=== PATIENT | male | born 1945 | race Caucasian/White ===

== ENCOUNTER 2016-08-11 17:07 | Outpatient (CLI) | payer MEDICARE ==
[2016-08-11 18:09] LABS: ALT (SGPT) 50 U/L (0-55); AST (SGOT) 31 U/L (5-34); Alkaline Phosphatase 51 U/L (40-150); Anion Gap 16 mmol/L (10-20); BUN (Urea Nitrogen) 21 mg/dL (8.4-25.7); Bilirubin, Total 0.6 mg/dL (0.2-1.2); Calc. Creatinine Clearance 0 mL/min (70-130); Carbon Dioxide 22 mmol/L (23-31); Chloride 106 mmol/L (98-107); Estimated GFR-MDRD Greater than 90; Globulin 2.9 g/dL (2.4-3.5); LDL Cholesterol, Calculated 105 mg/dL; Protein, Total 7.2 g/dL (5.8-8.1)
[2016-08-12 19:15] LABS: Microalbumin Urine Less than 1.0 mg/dL (0.5-50.0)
== END 2016-08-11 17:08 | disposition home or self-care (01) ==
LOC: NAV SJFMSP 17:07
PROVIDERS: ATTEND Family Medicine
DX: Z12.5 Encounter for screening for malignant neoplasm of prostate (principal); E11.9 Type 2 diabetes mellitus without complications
CPT/HCPCS: 80053; 80061; 82043; 84439; 84443; G0103

== ENCOUNTER 2016-08-12 11:38 | Outpatient (CLI) | payer MEDICARE | END 2016-08-12 11:39 | disposition home or self-care (01) | LOC: NAV LABSP 11:38 → NAV LAB 11:39 | PROVIDERS: ATTEND Family Medicine | DX: E11.9 Type 2 diabetes mellitus without complications (principal) ==

== ENCOUNTER 2016-08-16 08:36 | Outpatient (CLI) | payer MEDICARE ==
[2016-08-16 10:06] LABS: Hemoglobin A1c 7.3 % (4.0-6.0)
[2016-08-16 10:11] LABS: #Basophils 0.1 thou/uL (0.0-0.2); #Eosinphils 0.3 thou/uL (0.0-0.7); #Lymphocytes 1.8 thou/uL (1.20-3.40); #Neutrophils 4.4 thou/uL (1.40-6.50); %Eosinophils 4.2 % (0.0-10.0); %Lymphocytes 23.2 % (21.0-51.0); %Monocytes 13.3 % (0.0-10.0); Hematocrit 44.2 % (42.0-52.0); Mean Platelet Volume 7.7 fL (7.4-10.4); Red Blood Cell (RBC) Count 5.05 mill/uL (4.70-6.10); White Blood Cell (WBC) Count 7.6 thou/uL (4.8-10.8)
== END 2016-08-16 08:37 | disposition home or self-care (01) ==
LOC: NAV LAB 08:36
PROVIDERS: ATTEND Family Medicine
DX: E11.9 Type 2 diabetes mellitus without complications (principal)
CPT/HCPCS: 36415; 83036; 85025

== ENCOUNTER 2017-01-05 08:43 | Outpatient (CLI) | payer MEDICARE ==
[2017-01-05 12:40] LABS: Hemoglobin A1c 8.1 % (4.0-6.0)
[2017-01-05 13:07] LABS: ALT (SGPT) 55 U/L (8-55); AST (SGOT) 32 U/L (5-34); Albumin 4.4 g/dL (3.4-4.8); Alkaline Phosphatase 49 U/L (40-150); Anion Gap 17 mmol/L (10-20); BUN (Urea Nitrogen) 22 mg/dL (8.4-25.7); Bilirubin, Total 0.6 mg/dL (0.2-1.2); Calc. Creatinine Clearance 0 mL/min (70-130); Calcium 9.6 mg/dL (7.8-10.44); Carbon Dioxide 21 mmol/L (23-31); Cardiac Risk 4.5 (Less than 4.5); Chloride 104 mmol/L (98-107); Cholesterol 165 mg/dl (< 200 Desired); Estimated GFR-MDRD 86; Globulin 2.8 g/dL (2.4-3.5); Glucose 102 mg/dL (80-115); HDL Cholesterol 37 mg/dL (>60 Neg Risk); LDL Cholesterol, Calculated 100 mg/dL; Potassium 4.3 mmol/L (3.5-5.1); Protein, Total 7.2 g/dL (5.8-8.1); Sodium 138 mmol/L (136-145); Triglycerides 138 mg/dL (Less than 150)
== END 2017-01-05 08:44 | disposition home or self-care (01) ==
LOC: NAVSJIPCSP 08:43
PROVIDERS: ATTEND Family Medicine
DX: E11.9 Type 2 diabetes mellitus without complications (principal)
CPT/HCPCS: 36415; 80053; 80061; 83036